=== PATIENT | male | born 1965 | race Caucasian/White ===

== ENCOUNTER 2022-06-26 07:45 | Outpatient (CLI) | payer MEDICARE, SELFPAY ==
--- NOTE | ~2022-06-26 | CT_ITS ---
EXAMINATION: CT lung screening DATE: 06/26/2022 08:12 INDICATION: Personal history of nicotine dependence, current smoker with 41 pack year history TECHNIQUE: Computed tomography (CT) of the chest was performed without intravenous contrast. The dose -length product (DLP) was 138.96 mGy-cm. 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 COMPARISON: None FINDINGS: There is mild emphysema. There is a 4 mm nodule of the right middle lobe. There is a 4 mm n odule of the right lower lobe. There is a 3 mm nodule of the left upper lobe. No pleural effusion or pneumothorax. The lungs are free of acute opacities. Calcified pulmonary nodules and calcified left h ilar lymph nodes are consistent with old granulomatous disease. Calcified coronary artery atheroscler osis is noted. No pathologically enlarged thoracic lymph nodes are identified. The heart size is norm al. Mild bilateral gynecomastia is noted. There is mild thoracic spondylosis. IMPRESSION: 1. Lung-RADS category 2: Benign appearance or behavior. Continue annual screening with noncontrast lo w-dose chest CT in 12 months. Reviewed, dictated and finalized at location A. 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 Lung-RADS category 2: Benign appearance or behavior. Continue annual screeni ng with noncontrast low-dose chest CT in 12 months.
== END 2022-06-26 07:46 | disposition home or self-care (01) ==
LOC: CHSIMG 07:48
PROVIDERS: PCP Family Medicine; Visit Provider Family Medicine
DX: Z87.891 Personal history of nicotine dependence (principal)
CPT/HCPCS: 71271

== ENCOUNTER 2023-04-07 08:07 | Outpatient (CLI) | payer MEDICARE, SELFPAY ==
--- NOTE | ~2023-04-07 | US_ITS ---
EXAMINATION: US carotid duplex BI DATE: 04/07/2023 08:41 INDICATION: Carotid occlusion. Status post right carotid endarterectomy in 2016. TECHNIQUE: Grayscale, color Doppler, and pulsed Doppler images of the cervical carotid arteries were obtained. The degree of vessel stenosis is placed in one of the following categories: normal, <50%, 5 0-69%, >=70% but less than near-occlusion, near-occlusion, or total occlusion. Note that percent sten osis relative to normal distal artery lumen diameter is indirectly measured from velocity measurement s as described by Paulino, et al. Radiology 2003; [id number]. Notes: Normal: Peak systolic velocity <125 centimeters/sec and no plaque <50%. Peak systolic velocity <125 ( EDV <40; ICA/CCA PSV ratio <2.0; used these factors only a tandem lesions or low cardiac output or co ntralateral disease) 50-69 %: PSV 125-230 (EDV 40-100; ratio 2-4) >= 70% but less than near occlusion: PSV greater than 230 (EDV > 100; ratio> 4.0) Near Occlusion: PSV that is variable; markedly narrowed lumen Occlusion: Absent flow on color/spectral Doppler and no lumen on doherty scale. COMPARISON: None. FINDINGS: RIGHT: The right common carotid artery (CCA) peak systolic velocity (PSV) is 95 cm/s. The right internal car otid artery (ICA) PSV is 82 cm/s. The right ICA end-diastolic velocity (EDV) is 35 cm/s. The right IC A/CCA PSV ratio is 0.86. The external carotid artery (ECA) PSV is 113 cm/s. There is antegrade flow i n the right vertebral artery. LEFT: The left CCA PSV is 76 cm/s. The left internal carotid artery is occluded. The ECA PSV is 216 cm/s. T here is antegrade flow in the left vertebral artery. IMPRESSION: 1. Less than 50% stenosis in the right internal carotid artery by sonographic criteria. 2. Occluded left internal carotid artery. Reviewed, dictated and finalized at location B. IMPRESSION: 1. Less than 50% stenosis in the right internal carotid artery by sonographic brenda loera. 2. Occluded left internal carotid artery.
== END 2023-04-07 08:08 | disposition home or self-care (01) ==
LOC: CHSIMG 08:08
PROVIDERS: PCP Family Medicine; Visit Provider Family Medicine
DX: I63.9 Cerebral infarction, unspecified (principal); I65.23 Occlusion and stenosis of bilateral carotid arteries
CPT/HCPCS: 93880

== ENCOUNTER 2024-04-10 12:43 | Outpatient (CLI) | payer MEDICARE, SELFPAY ==
--- NOTE | ~2024-04-10 | US_ITS ---
EXAMINATION: US carotid duplex BI DATE: 04/10/2024 13:39 INDICATION: Stroke. Carotid atherosclerosis with left internal carotid artery occlusion. TECHNIQUE: Grayscale, color Doppler, and pulsed Doppler images of the cervical carotid arteries were obtained. The degree of vessel stenosis is placed in one of the following categories: normal, <50%, 5 0-69%, >=70% but less than near-occlusion, near-occlusion, or total occlusion. Note that percent sten osis relative to normal distal artery lumen diameter is indirectly measured from velocity measurement s as described by Paulino, et al. Radiology 2003; [id number]. COMPARISON: None. FINDINGS: RIGHT: The right common carotid artery (CCA) peak systolic velocity (PSV) is 102 cm/s. The right internal ca rotid artery (ICA) PSV is 87 cm/s. The right ICA end-diastolic velocity (EDV) is 32 cm/s. The right I CA/CCA PSV ratio is 0.9. Grayscale and color Doppler images yield an estimate of <50% diameter reduct ion from plaque in the ICA. The external carotid artery (ECA) PSV is 139 cm/s. There is antegrade hayder w in the right vertebral artery. LEFT: The left CCA PSV is 74 cm/s. Again seen is complete occlusion of the left ICA with no discernible hayder w on color Doppler. The ECA PSV is 252 cm/s. There is antegrade flow in the left vertebral artery. IMPRESSION: 1. <50% stenosis in the right internal carotid artery. 2. 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 Reviewed, dictated and finalized at location B.
== END 2024-04-10 12:44 | disposition home or self-care (01) ==
LOC: CHSIMG 12:45
PROVIDERS: PCP Family Medicine; Visit Provider Family Medicine
DX: I63.9 Cerebral infarction, unspecified (principal); I65.23 Occlusion and stenosis of bilateral carotid arteries
CPT/HCPCS: 93880